=== PATIENT | male | born 1990 | race Caucasian/White ===

== ENCOUNTER 2016-06-10 02:58 | Emergency (ER) | payer OTHER | END 2016-06-10 06:58 | disposition home or self-care (01) | LOC: ER1 02:58 | DX: M79.672 Pain in left foot (principal); G89.29 Other chronic pain; E11.65 Type 2 diabetes mellitus with hyperglycemia; E11.40 Type 2 diabetes mellitus with diabetic neuropathy, unspecified; Z79.84 Long term (current) use of oral hypoglycemic drugs; Z79.4 Long term (current) use of insulin | CPT/HCPCS: 73630; 82962; 99283 ==

== ENCOUNTER 2016-07-14 00:57 | Emergency (ER) | payer OTHER ==
[2016-07-14 02:26] LABS: HEMOGLOBIN 17.1 gm/dl (14.0-17.5); RED BLOOD COUNT 5.67 M/UL (4.20-5.50); WHITE BLOOD COUNT 13.5 K/UL (4.5-11.0)
[2016-07-14 02:32] LABS: BUN/CREATININE RATIO 24 (0-10)
== END 2016-07-14 04:06 | disposition home or self-care (01) ==
LOC: ER1 00:57
PROVIDERS: Emergency Medicine
DX: R00.2 Palpitations (principal); R00.0 Tachycardia, unspecified; R06.02 Shortness of breath; E11.9 Type 2 diabetes mellitus without complications; Z88.0 Allergy status to penicillin; Z88.6 Allergy status to analgesic agent; Z79.899 Other long term (current) drug therapy; Z79.84 Long term (current) use of oral hypoglycemic drugs; Z79.4 Long term (current) use of insulin
CPT/HCPCS: 36415; 71010; 80053; 80307; 81001; 82009; 82962; 84439; 84443; 84484; 85025; 85379; 87086; 93005; 99285

== ENCOUNTER 2020-03-15 17:29 | Emergency (ER) | payer OTHER ==
[~2020-03-15 17:29] MED LIST: BASAGLAR K100 UNIT/1 SC; BENTYL 20MG TAB20 MG PO; CEFUROXIME500 MG PO; HUMULIN R100 UNIT/1 INJ; IBUPROFEN600 MG PO; ZITHROMAX250 MG PO; ZOFRAN ODT 4 MG4 MG SL
== END 2020-03-15 19:35 | disposition left against medical advice (07) ==
LOC: ER1 17:29
DX: R42 Dizziness and giddiness (principal); R06.02 Shortness of breath; R10.9 Unspecified abdominal pain; R11.0 Nausea; Z53.21 Procedure and treatment not carried out due to patient leaving prior to being seen by health care provider
CPT/HCPCS: 82962

== ENCOUNTER → 2020-04-03 | Outpatient (CLI) | payer OTHER | LOC: RAD 16:20 | DX: M54.5 Low back pain (principal); M43.16 Spondylolisthesis, lumbar region; M47.816 Spondylosis without myelopathy or radiculopathy, lumbar region; M43.17 Spondylolisthesis, lumbosacral region | CPT/HCPCS: 72110 ==

== ENCOUNTER 2021-11-25 16:06 | Inpatient (IN) | payer OTHER ==
[~2021-11-25] VITALS: Ht 177.8 cm; Wt 77.1 kg
[2021-11-25 18:12] LABS: HEMOGLOBIN 16.7 gm/dl (14.0-17.5); RED BLOOD COUNT 5.41 M/UL (4.20-5.50)
[2021-11-25 18:41] LABS: BUN/CREATININE RATIO 37 (0-10); WHITE BLOOD COUNT 31.2 K/UL (4.5-11.0)
[2021-11-26 00:55] LABS: BUN/CREATININE RATIO 40 (0-10)
[2021-11-26 05:18] LABS: HEMOGLOBIN 13.6 gm/dl (14.0-17.5); RED BLOOD COUNT 4.52 M/UL (4.20-5.50); WHITE BLOOD COUNT 18.5 K/UL (4.5-11.0)
[2021-11-26 05:42] LABS: BUN/CREATININE RATIO 47 (0-10)
[2021-11-26 09:12] LABS: BUN/CREATININE RATIO 43 (0-10)
[2021-11-26] MEDS ORDERED: LANTUS SOL100 UNIT/1 SQ (09:39)
[2021-11-26] MEDS ORDERED: NOVOLOG FL100 UNIT/1 INJ (09:40)
[2021-11-26 14:52] LABS: BUN/CREATININE RATIO 40 (0-10)
[2021-11-26 19:13] LABS: BUN/CREATININE RATIO 36 (0-10)
[2021-11-26 22:20] LABS: BUN/CREATININE RATIO 28 (0-10)
[2021-11-27 02:39] LABS: BUN/CREATININE RATIO 30 (0-10)
[2021-11-27 05:03] LABS: HEMOGLOBIN 12.6 gm/dl (14.0-17.5); RED BLOOD COUNT 4.2 M/UL (4.20-5.50)
[2021-11-27 05:14] LABS: WHITE BLOOD COUNT 11.1 K/UL (4.5-11.0)
[2021-11-27 05:23] LABS: BUN/CREATININE RATIO 30 (0-10)
[2021-11-27 09:24] LABS: BUN/CREATININE RATIO 35 (0-10)
[2021-11-27] MEDS ORDERED: NOVOLOG 10100 UNITS2 INJ (13:11)
[2021-11-27] MEDS ORDERED: NOVOLOG 10100 UNITS2 SQ (13:16)
== END 2021-11-27 14:16 | disposition home or self-care (01) | DRG 639 ==
LOC: ER1 16:06 → CDU 18:50 → CCU 21:32
PROVIDERS: Emergency Medicine; ADMIT Internal Medicine
DX: E10.10 Type 1 diabetes mellitus with ketoacidosis without coma (principal); G71.00 Muscular dystrophy, unspecified; G60.0 Hereditary motor and sensory neuropathy; R11.2 Nausea with vomiting, unspecified; Z96.1 Presence of intraocular lens; Z79.4 Long term (current) use of insulin; Z83.3 Family history of diabetes mellitus; Z88.1 Allergy status to other antibiotic agents; Z98.42 Cataract extraction status, left eye; Z98.41 Cataract extraction status, right eye; Z98.890 Other specified postprocedural states; Z80.0 Family history of malignant neoplasm of digestive organs
CPT/HCPCS: 36415; 71045; 80048; 80053; 81001; 82009; 82550; 82553; 82803; 82962; 83036; 83605; 83690; 83735; 84100; 84439; 84443; 84484; 85025; 86140; 87040; 87081; 93005; 96372; 96374; 96375; 99285; J1650; J1956; J2405; U0002